=== PATIENT | male | born 1980 | race Caucasian/White ===

== ENCOUNTER 2018-12-02 15:51 | Emergency (ER) | payer SELFPAY ==
[~2018-12-02] VITALS: Ht 167.6 cm; Wt 84.0 kg
[2018-12-02 16:02] VITALS: BP 129/72; PULSE 115; RESP 20; Ht 167.6 cm; Wt 84.0 kg
== END 2018-12-02 17:12 | disposition left against medical advice (07) ==
LOC: FTE 15:51
DX: Z53.21 Procedure and treatment not carried out due to patient leaving prior to being seen by health care provider (principal)